=== PATIENT | female | born 1975 | race Caucasian/White ===

== ENCOUNTER 2016-06-25 08:18 | Inpatient (IN) | payer OTHER ==
[~2016-06-25] VITALS: Ht 172.7 cm; Wt 66.0 kg
[~2016-06-25 08:18] MED LIST: BACITRACIN 50,000 UNIT ONE; BACITRACIN OINT 500U/GM, 15 GM ONE; BUPIVACAINE/PF-EPI 0.25% 1:200K ONE; GABA100C8 PO; HYDR-879 PO; THROMBIN 20,000 UNIT VIAL TP ONE
[2016-06-25] MEDS ORDERED: MIDAZOLAM 1 MG/ML, 2ML ONE (09:11)
[2016-06-25] MEDS ORDERED: FENTANYL PF 250 MCG/5ML ONE (09:11)
[2016-06-25 09:22] VITALS: BP 112/74
[2016-06-25] MEDS ORDERED: LACTATED RINGERS 1,000 ML IV SCH (09:22)
[2016-06-25 10:04] LABS: HCG UR OBC PASS
[2016-06-25] MEDS ORDERED: DEXAMETHASONE 4 MG/ML, 1ML ONE (10:56)
[2016-06-25] MEDS ORDERED: SUCCINYLCHOLINE 20 MG/ML, 10ML ONE (10:56)
[2016-06-25] MEDS ORDERED: PROPOFOL 10 MG/ML, 20ML ONE (10:56)
[2016-06-25] MEDS ORDERED: GLYCOPYRROLATE 0.2MG/1ML ONE (10:56)
[2016-06-25] MEDS ORDERED: PROPOFOL 10 MG/ML, 50ML ONE (10:56)
[2016-06-25] MEDS ORDERED: ROCURONIUM 10 MG/ML ONE (10:56)
[2016-06-25] MEDS ORDERED: NEOSTIGMINE 1 MG/ML, 10ML ONE (10:56)
[2016-06-25] MEDS ORDERED: CEFAZOLIN 1,000 MG ONE (10:56)
[2016-06-25] MEDS ORDERED: ONDANSETRON 2MG/ML, 2ML ONE (10:56)
[2016-06-25] MEDS ORDERED: BUPIVACAINE/PF-EPI 0.25% 1:200K INFIL ONE (11:40)
[2016-06-25] MEDS ORDERED: ALBUTEROL SULFATE 2.5 MG/3 ML NPPB PRN (12:00)
[2016-06-25] MEDS ORDERED: ACETAMINOPHEN 325 MG TABLET PO PRN ×2 (12:00→15:30)
[2016-06-25] MEDS ORDERED: hydrALAzine 20 MG/ML, 1ML IV PRN (12:00)
[2016-06-25] MEDS ORDERED: METOPROLOL 1 MG/ML, 5ML IV PRN (12:00)
[2016-06-25] MEDS ORDERED: PROMETHAZINE 25 MG/ML, 1ML IV PRN (12:00)
[2016-06-25] MEDS ORDERED: ONDANSETRON 2MG/ML, 2ML IVPush PRN (12:00)
[2016-06-25] MEDS ORDERED: ALBUTEROL/IPRATROPIUM 2.5MG/0.5MG, 3 ML NPPB PRN (12:00)
[2016-06-25] MEDS ORDERED: MIDAZOLAM 1 MG/ML, 2ML IV PRN (12:00)
[2016-06-25] MEDS ORDERED: MEPERIDINE/PF 25MG/0.5ML IVPush PRN (12:00)
[2016-06-25] MEDS ORDERED: LABETALOL 5MG/ML, 20ML IV PRN (12:00)
[2016-06-25] MEDS ORDERED: OXYcodone 5 MG/5 ML ORAL.SOL UDC PO PRN (12:00)
[2016-06-25] MEDS ORDERED: EPHEDRINE 50 MG/ML, 1ML IVPush PRN (12:00)
[2016-06-25] MEDS ORDERED: BUPIVACAINE/PF-EPI 0.25% 1:200K ONE (12:07)
[2016-06-25] MEDS ORDERED: ACETAMINOPHEN 650 MG/20.3 ML UDC ONE (13:40)
[2016-06-25] MEDS ORDERED: ACETAMINOPHEN 325 MG TABLET ONE (13:40)
[2016-06-25] MEDS ORDERED: HYDROmorphone 2 MG/ML, 1ML ONE (13:40)
[2016-06-25] MEDS ORDERED: FENTANYL PF 100 MCG/2ML ONE ×2 (13:40→14:09)
[2016-06-25] MEDS ORDERED: OXYcodone 5 MG/5 ML ORAL.SOL UDC ONE (13:41)
[2016-06-25] MEDS: HYDROmorphone 1 MG/ML, 1ML IV PRN ×4 (13:45→14:18)
[2016-06-25] MEDS: FENTANYL PF 100 MCG/2ML IV PRN ×4 (13:48→14:35)
[2016-06-25] MEDS ORDERED: MEPERIDINE/PF 25MG/0.5ML ONE (14:10)
[2016-06-25] MEDS ORDERED: DIPHENHYDRAMINE 50 MG/ML, 1ML IVPush PRN (15:30)
[2016-06-25] MEDS ORDERED: morphine SULFATE 10 MG/ML, 1ML IV PRN (15:30)
[2016-06-25] MEDS ORDERED: DIPHENHYDRAMINE 50 MG CAPSULE PO PRN (15:30)
[2016-06-25] MEDS ORDERED: ONDANSETRON 2MG/ML, 2ML IV PRN (15:30)
[2016-06-25] MEDS ORDERED: MAGNESIUM HYDROXIDE 8%, 30ML UDC PO PRN (15:30)
[2016-06-25] MEDS ORDERED: ACETAMINOPHEN 650 MG SUPP PR PRN (15:30)
[2016-06-25] MEDS ORDERED: BISACODYL 10 MG SUPP PR PRN (15:30)
[2016-06-25] MEDS ORDERED: DIPHENHYDRAMINE 50 MG/ML, 1ML IM PRN (15:30)
[2016-06-25] MEDS ORDERED: HYDROcodone/APAP 10/325 MG TABLET PO PRN (15:30)
[2016-06-25] MEDS ORDERED: METHOCARBAMOL 1,000 MG in DEXTROSE 5% 100 ML IV ONE (16:00)
[2016-06-25] MEDS: NS + 20MEQ KCL 1,000 ML IV SCH (16:12)
[2016-06-25] MEDS: CEFAZOLIN PMX 2GM/50ML 50 ML IVPB SCH (18:28)
[2016-06-25 19:44] VITALS: BP 99/57
[2016-06-25] MEDS: HYDROcodone/APAP 10/325 MG TABLET PO PRN (20:07)
[2016-06-25] MEDS: GABAPENTIN 300 MG CAPSULE PO SCH (22:18)
[2016-06-26 00:14] VITALS: BP 97/52
[2016-06-26] MEDS: METHOCARBAMOL 750 MG in DEXTROSE 5% 100 ML IV SCH ×2 (00:14→09:04)
[2016-06-26] MEDS: HYDROcodone/APAP 10/325 MG TABLET PO PRN ×3 (00:23→09:08)
[2016-06-26] MEDS: NS + 20MEQ KCL 1,000 ML IV SCH (03:01)
[2016-06-26] MEDS: CEFAZOLIN PMX 2GM/50ML 50 ML IVPB SCH (03:01)
[2016-06-26 05:09] VITALS: BP 101/65
[2016-06-26 08:00] VITALS: BP 100/62
[2016-06-26] MEDS ORDERED: SENNA/DOCUSATE TABLET PO SCH (09:00)
[2016-06-26] MEDS: GABAPENTIN 300 MG CAPSULE PO SCH (09:04)
[2016-06-26 11:30] VITALS: BP 134/61
[2016-06-26] MEDS ORDERED: OXYC-229 PO (12:52)
[2016-06-26] MEDS ORDERED: METH750T87 PO (12:52)
[2016-06-27] MEDS ORDERED: METHOCARBAMOL 750 MG TABLET PO SCH (22:00)
== END 2016-06-26 13:05 | disposition home or self-care (01) | DRG 460 ==
LOC: ORIP 08:18 → 4NOR 14:56 → DCLOUNGE 06-26 12:49
PROVIDERS: ADMIT Neurological Surgery; ATTEND Neurological Surgery
PROC: 0SG00AJ Fusion of Lumbar Vertebral Joint with Interbody Fusion Device, Posterior Approach, Anterior Column, Open Approach (ICD-10-PCS; 2016-06-25)
PROC: 0SB40ZZ Excision of Lumbosacral Disc, Open Approach (ICD-10-PCS; 2016-06-25)
PROC: 4A11X4G Monitoring of Peripheral Nervous Electrical Activity, Intraoperative, External Approach (ICD-10-PCS; 2016-06-25)
PROC: 0SG30A1 (ICD-10-PCS; 2016-06-25)
PROC: 0SP004Z Removal of Internal Fixation Device from Lumbar Vertebral Joint, Open Approach (ICD-10-PCS; principal; 2016-06-25 10:30)
DX: M48.07 Spinal stenosis, lumbosacral region (principal); M51.27 Other intervertebral disc displacement, lumbosacral region; F17.200 Nicotine dependence, unspecified, uncomplicated; M54.16 Radiculopathy, lumbar region
CPT/HCPCS: 72100; 81025; C1713; J0690; J1100; J1170; J2175; J2250; J2405; J2704; J2710; J3010; J3480; J3490; C1762; J0330; J2800; J7120